=== PATIENT | male | born 2000 | race Caucasian/White ===

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

== ENCOUNTER 2021-03-05 23:03 | Emergency (ER) | payer OTHER | END 2021-03-06 02:08 | disposition home or self-care (01) | LOC: ER1 23:03 | DX: S51.012A Laceration without foreign body of left elbow, initial encounter (principal); F17.200 Nicotine dependence, unspecified, uncomplicated; V49.40XA Driver injured in collision with unspecified motor vehicles in traffic accident, initial encounter | CPT/HCPCS: 73080; 99283 ==